=== PATIENT | female | born 1990 | race Two or more races ===

== ENCOUNTER 2023-04-12 18:25 | Emergency (ER) | payer OTHER ==
[~2023-04-12] VITALS: Ht 154.9 cm; Wt 106.4 kg
[2023-04-12 18:27] VITALS: BP 116/72; PULSE 98; RESP 16; TEMP 98.5
[2023-04-12 19:00] LABS: COVID AG,FIA SOURCE NASAL SWAB
[2023-04-12 19:18] LABS: RAPID GROUP A STREP NEGATIVE (NEGATIVE)
[2023-04-12 19:28] LABS: INFLUENZA TYPE A NEGATIVE FOR TYPE A (NEGATIVE); INFLUENZA TYPE B NEGATIVE FOR TYPE B (NEGATIVE); SARS-COV2 (COVID) ANTIGEN,FIA Negative (Negative)
[2023-04-12] MEDS ORDERED: KETOROLAC TROMETHAMINE 30 MG/ML VIAL IM ONE (20:00)
[2023-04-12] MEDS ORDERED: AMOXICILLIN TRIHYDRATE 250 MG CAPSULE PO ONE (21:00)
[2023-04-12] MEDS ORDERED: AMOX250C4 PO (22:01)
== END 2023-04-12 22:11 | disposition home or self-care (01) ==
LOC: EMS 19:05
DX: J02.9 Acute pharyngitis, unspecified (principal); Z98.890 Other specified postprocedural states; Z20.822 Contact with and (suspected) exposure to COVID-19
CPT/HCPCS: 99283; 87426; 87430; 87804; 96372; J1885; C9803